=== PATIENT | male | born 1965 | race Caucasian/White ===

== ENCOUNTER 2017-06-20 09:40 | Emergency (ER) | payer SELFPAY ==
[2017-06-20 09:40] VITALS: BP 132/75; PULSE 62; RESP 18; TEMP 36.6; O2SAT 96; BMI 23.7
--- NOTE | 2017-06-20 09:57 | EKG12_ITS ---
Test Reason : EAR PAIN Blood Pressure : / mmHG Vent. Rate : 053 BPM Atrial Rate : 053 BPM P-R Int : 190 ms QRS Dur : 106 ms QT Int : 414 ms P-R-T Axes : 054 000 047 degrees QTc Int : 388 ms Sinus bradycardia Otherwise normal ECG Confirmed by JOSHUA CADE, RENY ([id number]), editorial cartoonist BOY BONILLA ([id number]) on 06/22/2017 2:55:04 PM Referred By: ANTHONY Confirmed By:RENY LEWIS MD
--- NOTE | 2017-06-20 09:58 | CT_ITS ---
STUDY: CTA OF THE BRAIN REASON FOR EXAM: Male, 52 years old. Tinnitus RADIATION DOSAGE (If Supplied By Facility): CTDIvol = ( 30.21 ) mGy, DLP = ( 1522.80 ) mGycm TECHNIQUE: CT angiography was performed with a multi-detector CT scanner. Data acquisition was obtained from the skull base through the vertex following intravenous administration of 100 ml of Isovue 370. MIP images were reconstructed from the axial data set. Post-processing of the angiographic images was performed, with multiplanar reformation and 3D reconstruction. Individualized dose optimization techniques were used for this CT. COMPARISON: None. FINDINGS: The petrous carotid arteries are normal in appearance. Normal right cavernous carotid artery with a normal supraclinoid bifurcation. Normal left cavernous carotid artery with a normal supraclinoid bifurcation. Normal right A1 segment of the anterior cerebral artery. Normal left A1 segment of the anterior cerebral artery. Normal intact anterior communicating artery (ACOM). Normal bilateral A2 segments of the anterior cerebral arteries. Normal right M1 and M2 segments of the middle cerebral arteries, with a normal M1 bifurcation. Normal left M1 and M2 segments of the middle cerebral arteries, with a normal M1 bifurcation. There is a persistent origin of the right posterior cerebral artery which is a normal anatomic variant. Normal left posterior communicating artery (PCOM). Normal bilateral distal vertebral arteries. Normal basilar artery with a normal basilar bifurcation. The visualized bilateral superior cerebellar (SCA) arteries are within normal limits. Normal bilateral P1, P2 and visualized P3 segments of the posterior cerebral arteries. There is no demonstrated aneurysm of the [place]. There is no demonstrated enhancement of the visualized brain. IMPRESSION: Normal intracranial arteries without a demonstrated aneurysm or hemodynamically significant stenosis. There are no vascular malformations with attention to the right side. No abnormalities are seen on limited imaging of the right temporal bone or internal auditory canal. Electronically Signed: Heather Garcia MD at 11:54 EDT Tel Direct: [phone], Service support , STUDY: CTA NECK WITH CONTRAST REASON FOR EXAM: Male, 52 years old. Tinnitus RADIATION DOSAGE (If Supplied By Facility): CTDIvol = ( 30.21 ) mGy, DLP = ( 1522.80 ) mGycm TECHNIQUE: CT angiography with multi-detector data acquisition was performed from the aortic arch to the skull base following intravenous administration of 100 ml of Isovue 370 contrast. MIP images were reconstructed from the axial data set. Post-processing of the angiographic images was performed, with multiplanar reformation and 3D reconstruction. Individualized dose optimization techniques were used for this CT. COMPARISON: None. FINDINGS: AORTIC ARCH: The aortic arch is normal in appearance. Normal origins of the brachiocephalic, left common carotid, and left subclavian arteries. RIGHT CAROTID ARTERIES: There are no significant abnormalities in the right common carotid artery. The right carotid bulb is normal in appearance. Normal origin of the right internal carotid artery without a hemodynamically significant stenosis. Normal visualized cervical portion of the right internal carotid artery. Normal origin of the right external carotid artery (ECA). LEFT CAROTID ARTERIES: There are no significant abnormalities in the left common carotid artery. The left carotid bulb is normal in appearance. Normal origin of the left internal carotid artery without a hemodynamically significant stenosis. Normal visualized cervical portion of the left internal carotid artery. Normal origin of the left external carotid artery (ECA). VERTEBRAL ARTERIES: The vertebral arteries show no significant abnormalities. No significant abnormalities are seen in the visualized lungs. There are no abnormal masses or enlarged lymph nodes in the upper mediastinum or throughout the neck. The thyroid is normal in appearance. The submandibular glands and parotid glands are symmetric and normal in appearance. There is a benign 2 cm retention cyst in the left maxillary sinus. The mastoid air cells are well aerated. The cervical spine is unremarkable. CT/CTA Neck W/WO Contrast IMPRESSION: There is no significant vascular disease in the cervical carotid arteries or vertebral arteries. Electronically Signed: Heather Garcia MD at 11:58 EDT Tel Direct: [phone], Service support ,
--- NOTE | 2017-06-20 09:58 | CT_ITS ---
STUDY: CTA OF THE BRAIN REASON FOR EXAM: Male, 52 years old. Tinnitus RADIATION DOSAGE (If Supplied By Facility): CTDIvol = ( 30.21 ) mGy, DLP = ( 1522.80 ) mGycm TECHNIQUE: CT angiography was performed with a multi-detector CT scanner. Data acquisition was obtained from the skull base through the vertex following intravenous administration of 100 ml of Isovue 370. MIP images were reconstructed from the axial data set. Post-processing of the angiographic images was performed, with multiplanar reformation and 3D reconstruction. Individualized dose optimization techniques were used for this CT. COMPARISON: None. FINDINGS: The petrous carotid arteries are normal in appearance. Normal right cavernous carotid artery with a normal supraclinoid bifurcation. Normal left cavernous carotid artery with a normal supraclinoid bifurcation. Normal right A1 segment of the anterior cerebral artery. Normal left A1 segment of the anterior cerebral artery. Normal intact anterior communicating artery (ACOM). Normal bilateral A2 segments of the anterior cerebral arteries. Normal right M1 and M2 segments of the middle cerebral arteries, with a normal M1 bifurcation. Normal left M1 and M2 segments of the middle cerebral arteries, with a normal M1 bifurcation. There is a persistent origin of the right posterior cerebral artery which is a normal anatomic variant. Normal left posterior communicating artery (PCOM). Normal bilateral distal vertebral arteries. Normal basilar artery with a normal basilar bifurcation. The visualized bilateral superior cerebellar (SCA) arteries are within normal limits. Normal bilateral P1, P2 and visualized P3 segments of the posterior cerebral arteries. There is no demonstrated aneurysm of the [place]. There is no demonstrated enhancement of the visualized brain. IMPRESSION: Normal intracranial arteries without a demonstrated aneurysm or hemodynamically significant stenosis. There are no vascular malformations with attention to the right side. No abnormalities are seen on limited imaging of the right temporal bone or internal auditory canal. Electronically Signed: Heather Garcia MD at 11:54 EDT Tel Direct: [phone], Service support , STUDY: CTA NECK WITH CONTRAST REASON FOR EXAM: Male, 52 years old. Tinnitus RADIATION DOSAGE (If Supplied By Facility): CTDIvol = ( 30.21 ) mGy, DLP = ( 1522.80 ) mGycm TECHNIQUE: CT angiography with multi-detector data acquisition was performed from the aortic arch to the skull base following intravenous administration of 100 ml of Isovue 370 contrast. MIP images were reconstructed from the axial data set. Post-processing of the angiographic images was performed, with multiplanar reformation and 3D reconstruction. Individualized dose optimization techniques were used for this CT. COMPARISON: None. FINDINGS: AORTIC ARCH: The aortic arch is normal in appearance. Normal origins of the brachiocephalic, left common carotid, and left subclavian arteries. RIGHT CAROTID ARTERIES: There are no significant abnormalities in the right common carotid artery. The right carotid bulb is normal in appearance. Normal origin of the right internal carotid artery without a hemodynamically significant stenosis. Normal visualized cervical portion of the right internal carotid artery. Normal origin of the right external carotid artery (ECA). LEFT CAROTID ARTERIES: There are no significant abnormalities in the left common carotid artery. The left carotid bulb is normal in appearance. Normal origin of the left internal carotid artery without a hemodynamically significant stenosis. Normal visualized cervical portion of the left internal carotid artery. Normal origin of the left external carotid artery (ECA). VERTEBRAL ARTERIES: The vertebral arteries show no significant abnormalities. No significant abnormalities are seen in the visualized lungs. There are no abnormal masses or enlarged lymph nodes in the upper mediastinum or throughout the neck. The thyroid is normal in appearance. The submandibular glands and parotid glands are symmetric and normal in appearance. There is a benign 2 cm retention cyst in the left maxillary sinus. The mastoid air cells are well aerated. The cervical spine is unremarkable. CT/CTA Head W/WO Contrast IMPRESSION: There is no significant vascular disease in the cervical carotid arteries or vertebral arteries. Electronically Signed: Heather Garcia MD at 11:58 EDT Tel Direct: [phone], Service support ,
--- NOTE | 2017-06-20 10:48 | NURSING ---
NO OLD EKGS
[2017-06-20] MEDS: 0.9% Normal Saline 1,000 ML 150 ML IV (10:58)
--- NOTE | 2017-06-20 11:05 | ED.VISSUMM ---
- ER Visit Summary Date of Service: 06/20/17 Chief Complaint: [Pulsatile ringing right ear] History of Present Illness: The patient is a 52 M [presents to the emergency department with symptoms that he noticed yesterday. Patient states that he feels his heartbeat in the right ear when it is very quiet. Patient apparently has been looking up online his symptoms and was concerned about possibility of an aneurysm. Patient states that there is a family history of stroke at a young age. Patient denies any visual changes. He denies any pain in his ear or decreased hearing. He denies any difficulty with vision or speech. Patient denies any weakness in extremities. Patient is never had symptoms like this before. He denies headache or ear pain. Denies fever or recent illness.] Physical Examination: [HEENT-PERRLA, EOMI. Cranial nerves II through XII grossly intact. TMs clear. Mucous membranes moist. No adenopathy. Cardiovascular-regular rate and rhythm without murmur or ectopy Lungs-clear to auscultation, chest wall stable without crepitus or subcu emphysema Abdomen-normoactive bowel sounds, soft, nontender, no rebound or rigidity, no peritoneal signs. Neuro wmgg-turnat-tyki and heel pardo testing within normal limits, negative Romberg, negative for drift, fundi benign Extremities-intact ?4, normal range of motion, normal pulses, atraumatic] Test Results: [] Emergency Department Course and Treatment: [] Treatment Plan: [] Disposition: [] Impression: [] This note was generated with [employer] dictation software. It may contain incorrect words, spelling, and punctuation that were not noted in review of the chart prior to signing ED Disposition - Plan for ED Patient: Chief Complaint: Ear Problem Referrals: Raul Quinones MD [Primary Care Provider] -
[2017-06-20 11:17] LABS: Absolute Lymphocyte Count 1.38 X10^3/ul (0.83-4.51); Absolute Neutrophil Count 2.5 X10^3/uL (2.0-7.7); Basophil# 0.04 X10^3/uL; Basophil% 0.9 % (0-1); Eosinophil# 0.11 X10^3/uL; Eosinophils% 2.3 % (0-5); Hematocrit 43.8 % (40-54); Hemoglobin 14.3 g/dl (13.0-16.5); Lymphocyte # 1.38 X10^3/ul (4.0); Lymphocyte % 29.4 % (19-41); Mean Corp Hgb Conc 32.6 g/gl (32-36); Mean Corpuscular Hgb 30.5 pg (27.0-32.0); Mean Corpuscular Volume 93.4 fL (80-94); Mean Platelet Vol. 10.2 fl (6.2-12.0); Monocyte# 0.67 X10^3/uL; Monocyte% 14.3 % (0-10); Neutrophil # 2.49 X10^3/uL (2.7-7.7); Neutrophil % 53.1 % (47-70); Platelet Count 177 K/mm3 (150-450); RBC Distribution Width CV 13.3 % (11.6-14.6); RBC Distribution Width SD 45.3 fl (35.1-43.9); Red Blood Count 4.69 M/mm3 (4.6-6.2); White Blood Count 4.7 K/mm3 (4.4-11.0)
[2017-06-20 11:18] LABS: POSITIVE COUNT NO; POSITIVE DIFFERENTIAL NO; POSITIVE MORPHOLOGY NO
[2017-06-20 11:20] LABS: Anion Gap 3 (5-15); BUN 18 mg/dL (7-18); BUN/Creat Ratio 17.8 RATIO (10-20); Calcium,Total 8.7 mg/dL (8.5-10.1); Chloride 109 mmol/L (98-107); Creatinine, Serum 1.01 mg/dL (0.70-1.30); EST Glomerular Filtration Rate 82 mL/min (>60); Est Glom Filt Rate - Afr Amer 100 mL/min (>60); Estimated Creatinine Clearance 91.12 ml/min; Glucose 91 mg/dL (74-106); Potassium 4.2 mmol/L (3.5-5.1); Sodium Level 142 mmol/L (136-145)
[2017-06-20 11:40] VITALS: BP 171/67; PULSE 70; RESP 18; O2SAT 100
--- NOTE | 2017-06-20 12:14 | ED.DEP ---
ED Disposition - Plan for ED Patient: Chief Complaint: Ear Problem Instructions: Tinnitus (Ringing in the Ears) Referrals: Raul Quinones MD [Primary Care Provider] - Dilshad Benjamin MD [STAFF PHYSICIAN] - 3-5 Days
--- NOTE | 2017-06-20 12:15 | ED.VISSUMM ---
- ER Visit Summary Date of Service: 06/20/17 Chief Complaint: Initial dictation [] History of Present Illness: The patient is a 52 M [] Physical Examination: [] Test Results: [CBC with differential was normal. Chemistries were normal. CT of the head and neck were normal.] Emergency Department Course and Treatment: [None indicated] Treatment Plan: [Patient case was discussed with Dr. Dilshad Benjamin who is on-call for ENT will follow patient up in the office.] Disposition: Discharged home in stable condition. Patient advised to return if severe headache, difficulty with balance or speech, or condition should worsen in any way. [] Impression: [Tinnitus-etiology uncertain] This note was generated with [employer] software. It may contain incorrect words, spelling, and punctuation that were not noted in review of the chart prior to signing ED Disposition - Plan for ED Patient: Chief Complaint: Ear Problem Instructions: Tinnitus (Ringing in the Ears) Referrals: Dilshad Benjamin MD [STAFF PHYSICIAN] - 3-5 Days Raul Quinones MD [Primary Care Provider] -
[2017-06-20 12:44] VITALS: BP 106/69; PULSE 51; RESP 16; O2SAT 98
== END 2017-06-20 12:45 | disposition home or self-care (01) ==
PROVIDERS: Emergency Provider Emergency Medicine; Family Provider Family Medicine; PCP Family Medicine
DX: H93.A1 Pulsatile tinnitus, right ear (principal)
CPT/HCPCS: 70496; 70498; 80048; 85025; 93005; 96360; 96361; 99283; Q9967

== ENCOUNTER → 2018-12-11 | Outpatient (CLI) | payer SELFPAY ==
--- NOTE | 2018-12-11 | TISS_PTH ---
PATIENT: OLGA PATEL LOC: [facility] U#:[id number] AGE/SX: 53/M ROOM: RE12/11/[address]: Dr. Juan Taylor DDS : 1965 BED: DIS: 12/11/2018 SPEC #: [id number] RECD: 12/11/18 10:25 STATUS: EARNEST MARTHA #: [id number] SANDEE: 12/11/18 00:[address]: Juan Taylor DEPT: SURGICAL PATHOLOGY RECD BY: Gerardo Gar ENTERED: 12/11/18 13:21 SP TYPE: Tissue Bx ALBER DR: Dr. Raul Quinones MD Tissues: Mouth, NOS Procedures: Special Stain Group I Surgery Specimen Level IV GMS Stain (control) HEADER OPERATION: Biopsy oral vestibule PRE-OP DIAGNOSIS: Present several months, pebbly surface, wide spread TISSUE SUBMITTED: Buccal tissue MICROSCOPIC DIAGNOSIS Buccal tissue, biopsy: Ulceration with associated acute and chronic inflammation and early granulation. Negative for fungal organisms. See comment. AM:lynda 12/12/18 COMMENT A chronic inflammatory process such as malakoplakia is a possibility. Clinical correlation is suggested. GMS stain with matched control supports the above diagnosis. Immunohistochemistry ([id number]) supports the above diagnosis. Case has been reviewed in consultation with Dr. Torre who concurs with the above diagnosis. IDC:BURKE MICROSCOPIC DESCRIPTION Slides are reviewed. GROSS DESCRIPTION Received in fixative is one container labeled with the patient's name and designated oral vestibule. The specimen consists of multiple pieces of wagner hemorrhagic mucosal tissue that in aggregate measure 0.5 x 0.5 x 0.3 cm. The entire specimen is submitted in one cassette. / BURKE:lynda 12/11/18 TC:3 CPT: 98969, 00302
--- NOTE | 2018-12-11 | IMM_PTH ---
PATIENT: OLGA PATEL LOC: [facility] U#:[id number] AGE/SX: 53/M ROOM: RE12/11/[address]: Dr. Juan Taylor DDS : 1965 BED: DIS: 12/11/2018 SPEC #: [id number] RECD: 12/14/18 12:38 STATUS: EARNEST REQ #: [id number] SANDEE: 12/11/18 00:[address]: Juan Taylor DEPT: IMMUNOHISTOCHEMISTRY RECD BY: Samina Lu ENTERED: 12/14/18 12:40 SP TYPE: IMMUNO OTHR DR: Dr. Raul Quinones MD Tissues: Buccal mucosa, NOS Procedures: MACRO (initial) CD138 (add) CD20 (add) CD3 (add) CD45 (add) CD5 (add) CD79A (add) KAPPA (add) LAMBDA (add) PHYSICIAN & INSTITUTION [place] [id number] SPECIMEN INFORMATION: Tissue Source: Buccal tissue Clinical Info: Present several months, pebbly surface, wide spread Specimen Number: [id number] CPT code: 78289, 47955 x8 METHODOLOGY: Deparaffinized sections of prefer/formalin-fixed tissue or PAP/DQ stained slides are incubated with monoclonal/polyclonal antibodies/oligonucleotide probes. Localization is made via biotin free immunoperoxidase method. Appropriate controls are performed and reacted as expected. Results on target cell population are indicated in the following table: RESULTS: ANTIBODY / CLONE RESULT Macro (HAM-56) positive CD138 (B-A38) positive CD20 (L26) negative CD79a (11E3) positive CD45 (RP2/18) positive CD3 (PS1) positive CD5 (SP10) positive [place] (polyclonal) negative Lambda (polyclonal) negative These tests were developed and their performance characteristics determined by [facility]. They may not have been cleared or approved by the U.S. Food and Drug Administration. The FDA has determined that such clearance or approval is not necessary. INTERPRETATION: Buccal tissue, biopsy: Consistent with chronic inflammatory process. AM:lynda 12/17/18 Case has been reviewed in consultation with Dr. Torre who concurs with the above diagnosis. IDC:BURKE
== END | disposition home or self-care (01) ==
LOC: LABSPEC 10:48
PROVIDERS: Family Provider Family Medicine; PCP Family Medicine; Referring Provider Dentist Oral and Maxillofacial Surgery; Visit Provider Dentist Oral and Maxillofacial Surgery
DX: K12.1 Other forms of stomatitis (principal)
CPT/HCPCS: 88305; 88312; 88341; 88342

== ENCOUNTER 2020-06-11 09:36 | Outpatient (RCR) | payer MEDICARE, SELFPAY ==
[2020-06-11] MEDS: COVID-19 VACC, MRNA(PFIZER)/PF 30 MCG/0.3 ML SYRINGE IM (07:10)
[2020-07-02] MEDS: COVID-19 VACC, MRNA(PFIZER)/PF 30 MCG/0.3 ML SYRINGE IM (07:08)
== END 2020-06-11 23:59 ==
LOC: IMMUN 09:36
PROVIDERS: PCP Student in an Organized Health Care Education/Training Program; Visit Provider Family Medicine
DX: Z23 Encounter for immunization (principal)
CPT/HCPCS: 0001A; 0002A; 91300